=== PATIENT | female | born 1985 | race American Indian/Alaskan Native ===

== ENCOUNTER 2017-05-15 06:45 | Emergency (ER) | payer MEDICAID ==
--- NOTE | 2017-05-15 08:14 | Emergency Department Report ---
ED Female HPI - General Chief complaint: Urogenital-Female Stated complaint: PELVIS PAIN Time Seen by Provider: 05/15/17 08:12 Source: patient Mode of arrival: Ambulatory Limitations: No Limitations - History of Present Illness Complaint: vaginal bleeding -: Gradual Severity: mild Quality: cramping Consistency: intermittent Improves with: none Are you Now?: No Last Menstrual Period: 05/05/17 EDC: 02/09/18 Associated Symptoms: vaginal bleeding. denies: vaginal discharge, abdominal pain, nausea/vomiting, fever/chills, headaches, loss of appetite, dysuria, hematuria, rash, seizure, shortness of breath, syncope, weakness - Related Data Sexually active: Yes Previous Rx's Medication Instructions Recorded Last Taken Type metroNIDAZOLE [Flagyl] 500 mg PO Q12HR #14 tab 05/15/17 Unknown Rx Allergies Allergy/AdvReac Type Severity Reaction Status Date / Time No Known Allergies Allergy Unverified 05/15/17 07:45 ED Review of Systems ROS: Stated complaint: PELVIS PAIN Other details as noted in HPI Comment: Unobtainable due to pts medical conditions Constitutional: no symptoms reported, see HPI. denies: chills, fever Eyes: as per HPI. denies: eye pain ENT: as per HPI. denies: ear pain, throat pain Respiratory: no symptoms reported, see HPI. denies: cough, orthopnea Cardiovascular: as per HPI. denies: chest pain, palpitations, dyspnea on exertion, orthopnea Endocrine: no symptoms reported, see HPI. denies: excessive sweating, flushing , intolerance to cold, intolerance to heat Gastrointestinal: as per HPI. denies: abdominal pain, nausea, vomiting, diarrhea, constipation, hematemesis, melena, hematochezia Genitourinary: as per HPI, abnormal menses. denies: urgency, dysuria, frequency , hematuria, discharge, dyspareunia Musculoskeletal: as per HPI. denies: back pain Skin: as per HPI. denies: rash, lesions Neurological: as per HPI. denies: headache, weakness Psychiatric: as per HPI. denies: anxiety, depression Hematological/Lymphatic: as per HPI. denies: easy bleeding ED Past Medical Hx - Past Medical History Previous Medical History?: No Additional medical history: pid 2 m ago at [facility] [place] - Surgical History Past Surgical History?: Yes Additional Surgical History: tubaligation, Right ovarian cyst removal - Social History Smoking Status: Current Some Day Smoker Substance Use Type: Alcohol, Marijuana - Medications Home Medications: Home Medications Medication Instructions Recorded Confirmed Last Taken Type metroNIDAZOLE [Flagyl] 500 mg PO Q12HR #14 tab 05/15/17 Unknown Rx ED Physical Exam - General Limitations: No Limitations General appearance: alert - Head Head exam: Present: atraumatic - Eye Eye exam: Present: PERRL - ENT ENT exam: Present: mucous membranes moist - Neck Neck exam: Present: normal inspection - Respiratory Respiratory exam: Present: normal lung sounds bilaterally - Cardiovascular Cardiovascular Exam: Present: regular rate - GI/Abdominal GI/Abdominal exam: Present: soft, normal bowel sounds. Absent: distended, tenderness, guarding, rebound, rigid, diminished bowel sounds, hyperactive bowel sounds, hypoactive bowel sounds, organomegaly, mass, bruit, pulsatile mass , hernia - Rectal Rectal exam: Present: deferred - External exam: Present: normal external exam Speculum exam: Present: normal speculum exam, vaginal bleeding. Absent: erythema, vaginal discharge, cervical discharge, foreign body, tissue, laceration Bi-manual exam: Present: normal bi-manual exam. Absent: cervical motion tendernes, adnexal tenderness, adnexal mass, uterine enlargement, uterine tenderness - Extremities Exam Extremities exam: Present: normal inspection, full ROM, normal capillary refill. Absent: tenderness - Back Exam Back exam: Present: normal inspection, full ROM. Absent: tenderness, CVA tenderness (R), CVA tenderness (L) - Neurological Exam Neurological exam: Present: alert, oriented X3, CN II-XII intact, normal gait, reflexes normal - Psychiatric Psychiatric exam: Present: normal affect, normal mood ED Course Vital Signs 05/15/17 07:41 Temperature 98.6 F Pulse Rate 66 Respiratory 16 Rate Blood Pressure 116/84 O2 Sat by Pulse 96 Oximetry - Reevaluation(s) Reevaluation #1: 05/15/17 10:15 to er w menses 10 d concern for uti w recent pid sex w 1 man; no s/s did not see ob p pid pelvic w blood at cervix fishy odor no lesions discussed need for ob for pap and us to eval for fibroid vss. no orthostasis taking po ambulating wo diff dc home w dc poc vs on dc 120/80, 80 ED Medical Decision Making - Medical Decision Making see note Critical care attestation.: If time is entered above; I have spent that time in minutes in the direct care of this critically ill patient, excluding procedure time. ED Disposition Clinical Impression: Dysmenorrhea, Bacterial vaginosis Disposition: TO HOME OR SELFCARE Is pt being admited?: No Does the pt Need Aspirin: No Condition: Stable Instructions: Bacterial Vaginosis (ED), Dysmenorrhea (ED) Additional Instructions: rest fluids safe sex see enrobing machine corder for pap as we discussed let them know of trip to [facility] [place] and now here Prescriptions: metroNIDAZOLE [Flagyl] 500 mg PO Q12HR #14 tab Referrals: EBONY GONZALEZ MD [Primary Care Provider] - 3-5 Days AMIRAH DELUNA MD [Staff Physician] - 3-5 Days ROGERIO FAN MD [Referring] - 3-5 Days PREM LOCKETT MD [Referring] - 3-5 Days Forms: STI Treatment and Prevention Time of Disposition: 10:13
[2017-05-15 09:28] LABS: Bilirubin,Urine NEG (Negative); Blood,Urine NEG (Negative); Ketones,Urine NEG (Negative); Leukocyte Esterase,Urine NEG (Negative); Mucus,Urine FEW /HPF; Nitrite,Urine NEG (Negative); Protein,Urine <15 mg/dL mg/dL (Negative); RBC,Urine < 1.0 /HPF (0.0-6.0); WBC,Urine < 1.0 /HPF (0.0-6.0)
[2017-05-15 10:27] VITALS: BP 118/76
== END 2017-05-15 10:27 | disposition home or self-care (01) ==
LOC: ED 06:45
DX: N94.6 Dysmenorrhea, unspecified (principal); N76.0 Acute vaginitis; F17.210 Nicotine dependence, cigarettes, uncomplicated; F12.10 Cannabis abuse, uncomplicated
CPT/HCPCS: 81001; 81025; 87210; 87591; 99284

== ENCOUNTER 2018-01-09 19:49 | Emergency (ER) | payer MEDICAID ==
[2018-01-09 22:07] LABS: Basophils # (Auto) 0.1 K/mm3 (0.0-0.1); Basophils % (Auto) 0.6 % (0.0-1.8); Eosinophils # (Auto) 0.2 K/mm3 (0.0-0.4); Eosinophils % (Auto) 1.8 % (0.0-4.3); Hemoglobin 12.9 gm/dl (10.1-14.3); Lymphocytes % (Auto) 22.5 % (13.4-35.0); Mean Corpuscular HGB Conc 32 % (30-34); Mean Corpuscular Hemoglobin 28 pg (28-32); Mean Corpuscular Volume 88 fl (79-97); Monocytes # (Auto) 0.6 K/mm3 (0.0-0.8); Monocytes % (Auto) 6.6 % (0.0-7.3); Platelet Count 372 K/mm3 (140-440); Red Blood Count 4.53 M/mm3 (3.65-5.03); Red Cell Distribution Width 15.6 % (13.2-15.2)
[2018-01-09 22:19] LABS: Alanine Aminotransferase 13 units/L (7-56); Albumin 4.1 g/dL (3.9-5); BUN/Creatinine Ratio 6; Blood Urea Nitrogen 5 mg/dL (7-17); Calcium 8.9 mg/dL (8.4-10.2); Hemolysis Index 20; Lipase 49 units/L (13-60)
[2018-01-10 01:54] LABS: Bacteria,Urine 2+ /HPF (Negative); Bilirubin,Urine NEG (Negative); Blood,Urine NEG (Negative); Color,Urine Yellow (Yellow); Hyaline Casts,Urine 1 /LPF; Mucus,Urine FEW /HPF; Protein,Urine <15 mg/dL mg/dL (Negative); Urobilinogen,Urine < 2.0 mg/dL (<2.0)
--- NOTE | 2018-01-10 04:30 | Emergency Department Report ---
HPI - General Chief Complaint: Abdominal Pain Time Seen by Provider: 01/10/18 03:49 - HPI HPI: Room 6 The patient is a 32-year-old female presenting with a chief complaint pelvic pain. The patient states since last night she's had a constant suprapubic abdominal pain that is dull and sharp in nature. The patient states the pain is constant and associated with nausea but no vomiting. Patient denies fever, dysuria, vaginal discharge or hematuria. The patient states her last cycle occurred 12/29/2017 was within normal limits. The patient gives her pain a score of 8/10 Location: Suprapubic abdomen Duration: [See above] Quality: [See above] Severity:8/10 Modifying factors: [see above] Context: [see above] Mode of transportation: The patient drove herself to the emergency department and she is the only one able to drive ED Past Medical Hx - Past Medical History Previous Medical History?: Yes Additional medical history: pid 2 m ago at [facility] [place] - Surgical History Additional Surgical History: tubaligation, Right ovarian cyst removal - Family History Family history: no significant - Social History Smoking Status: Never Smoker Substance Use Type: None (denies illicit drug use), Alcohol (occasional) - Medications Home Medications: Home Medications Medication Instructions Recorded Confirmed Last Taken Type metroNIDAZOLE [Flagyl] 500 mg PO Q12HR #14 tab 05/15/17 Unknown Rx HYDROcodone/APAP 5-325 [[place] 1 - 2 each PO Q6HR PRN #10 tablet 01/10/18 Unknown Rx 5/325] Ibuprofen [Motrin 800 MG tab] 800 mg PO Q8HR PRN #20 tablet 01/10/18 Unknown Rx Levofloxacin [Levaquin TAB] 500 mg PO QDAY #7 tablet 01/10/18 Unknown Rx metroNIDAZOLE [Flagyl] 500 mg PO Q12HR #14 tab 01/10/18 Unknown Rx ED Review of Systems ROS: Stated complaint: ABDOMINAL PAIN Other details as noted in HPI Constitutional: denies: fever Eyes: denies: eye pain ENT: denies: throat pain Cardiovascular: denies: chest pain Gastrointestinal: abdominal pain, nausea. denies: vomiting Genitourinary: denies: dysuria, hematuria, discharge, abnormal menses Musculoskeletal: denies: back pain Neurological: denies: headache Physical Exam - Physical Exam Vital Signs: Vital Signs 01/09/18 21:41 Temperature 98.7 F Pulse Rate 76 Respiratory 14 Rate Blood Pressure 138/89 O2 Sat by Pulse 100 Oximetry Physical Exam: GENERAL: The patient is well-developed well-nourished female lying on stretcher not appearing to be in acute distress. [] HEENT: Normocephalic. Atraumatic. Extraocular motions are intact. Patient has moist mucous membranes. NECK: Supple. Trachea midline CHEST/LUNGS: Clear to auscultation. There is no respiratory distress noted. HEART/CARDIOVASCULAR: Regular. There is no tachycardia. There is no gallop rub or murmur. ABDOMEN: Abdomen is soft, with moderate discomfort to palpation in the suprapubic region. There is no rebound or guarding. There is no tenderness to palpation in the right lower quadrant. Patient has normal bowel sounds. There is no abdominal distention. SKIN: There is no rash. There is no edema. There is no diaphoresis. NEURO: The patient is awake, alert, and oriented. The patient is cooperative. The patient has normal speech MUSCULOSKELETAL: There is no evidence of acute injury. PELVIC: Copious white vaginal discharge ED Course Vital Signs 01/09/18 21:41 Temperature 98.7 F Pulse Rate 76 Respiratory 14 Rate Blood Pressure 138/89 O2 Sat by Pulse 100 Oximetry ED Medical Decision Making - Lab Data Result diagrams: 01/09/18 21:55 01/09/18 21:55 Laboratory Tests 01/09/18 01/09/18 01/09/18 00:00 21:55 21:55 WBC 8.8 RBC 4.53 Hgb 12.9 Hct 40.0 MCV 88 MCH 28 MCHC 32 RDW 15.6 H Plt Count 372 Lymph % (Auto) 22.5 [place] % (Auto) 6.6 Eos % (Auto) 1.8 Baso % (Auto) 0.6 Lymph # 2.0 [place] # 0.6 Eos # 0.2 Baso # 0.1 Seg Neutrophils % 68.5 Seg Neutrophils # 6.1 Sodium 137 Potassium 3.8 Chloride 98.5 Carbon Dioxide 27 Anion Gap 15 BUN 5 L Creatinine 0.8 Estimated GFR > 60 BUN/Creatinine Ratio 6 Glucose 110 H Calcium 8.9 Total Bilirubin 0.40 AST 16 ALT 13 Alkaline Phosphatase 73 Total Protein 7.5 Albumin 4.1 Albumin/Globulin Ratio 1.2 Lipase 49 HCG, Qual Urine Color Yellow Urine Turbidity Hazy Urine pH 6.0 Ur Specific [place] 1.015 Urine Protein <15 mg/dl Urine Glucose (UA) Neg Urine Ketones Neg Urine Blood Neg Urine Nitrite Neg Urine Bilirubin Neg Urine Urobilinogen < 2.0 Ur Leukocyte Esterase Mod Urine WBC (Auto) 29.0 H Urine RBC (Auto) 10.0 U Epithel Cells (Auto) 40.0 H Urine Bacteria (Auto) 2+ Hyaline Casts 1 Urine Mucus Few 01/09/18 21:55 WBC RBC Hgb Hct MCV MCH MCHC RDW Plt Count Lymph % (Auto) [place] % (Auto) Eos % (Auto) Baso % (Auto) Lymph # [place] # Eos # Baso # Seg Neutrophils % Seg Neutrophils # Sodium Potassium Chloride Carbon Dioxide Anion Gap BUN Creatinine Estimated GFR BUN/Creatinine Ratio Glucose Calcium Total Bilirubin AST ALT Alkaline Phosphatase Total Protein Albumin Albumin/Globulin Ratio Lipase HCG, Qual Negative Urine Color Urine Turbidity Urine pH Ur Specific [place] Urine Protein Urine Glucose (UA) Urine Ketones Urine Blood Urine Nitrite Urine Bilirubin Urine Urobilinogen Ur Leukocyte Esterase Urine WBC (Auto) Urine RBC (Auto) U Epithel Cells (Auto) Urine Bacteria (Auto) Hyaline Casts Urine Mucus Wet prep-greater than 20% clue cells, no yeast, no Trichomonas - Differential Diagnosis cystitis, bacterial vaginosis, vaginitis Critical care attestation.: If time is entered above; I have spent that time in minutes in the direct care of this critically ill patient, excluding procedure time. ED Disposition Clinical Impression: UTI (urinary tract infection), Acute abdominal pain, Bacterial vaginosis Disposition: TO HOME OR SELFCARE Is pt being admited?: No Does the pt Need Aspirin: No Condition: Stable Instructions: Abdominal Pain (ED), Bacterial Vaginosis (ED) Additional Instructions: Return to the emergency department immediately should you develop worsening symptoms, fever, inability to tolerate food or liquid or any other concerns. Prescriptions: HYDROcodone/APAP 5-325 [[place] 5/325] 1 - 2 each PO Q6HR PRN #10 tablet PRN Reason: Pain Ibuprofen [Motrin 800 MG tab] 800 mg PO Q8HR PRN #20 tablet PRN Reason: Pain Levofloxacin [Levaquin TAB] 500 mg PO QDAY #7 tablet metroNIDAZOLE [Flagyl] 500 mg PO Q12HR #14 tab Referrals: PRIMARY CARE, [Primary Care Provider] - 3-5 Days [facility] [Provider Group] - 3-5 Days Forms: STI Treatment and Prevention Time of Disposition: 05:20
[2018-01-10] MEDS ORDERED: ROCEPHIN IM ONE (05:14)
[2018-01-10] MEDS ORDERED: ZITHROMAX PO ONE (05:14)
[2018-01-10] MEDS ORDERED: XYLOCAINE 1% MPF 5 mL INFILTRATI ONE (05:14)
[2018-01-10 05:57] VITALS: BP 119/74
== END 2018-01-10 06:00 | disposition home or self-care (01) ==
LOC: ED 19:49
DX: N39.0 Urinary tract infection, site not specified (principal); N76.0 Acute vaginitis; B96.89 Other specified bacterial agents as the cause of diseases classified elsewhere; Z98.51 Tubal ligation status
CPT/HCPCS: 36415; 80053; 81001; 83690; 84703; 85025; 87210; 87591; 96372; 99284; J0696

== ENCOUNTER 2019-01-03 17:25 | Emergency (ER) | payer MEDICAID, OTHER ==
--- NOTE | 2019-01-03 18:02 | Emergency Department Report ---
Blank Doc - Documentation Documentation: 1 day history of mid abdominal pain associated with nausea. no constipaiton. no diarrhea. Has tubal ligation
[2019-01-03 18:51] LABS: Bilirubin,Urine NEG (Negative); Blood,Urine NEG (Negative); Color,Urine Yellow (Yellow); Mucus,Urine FEW /HPF; Protein,Urine <15 mg/dL mg/dL (Negative); Urobilinogen,Urine < 2.0 mg/dL (<2.0)
[2019-01-03 19:06] LABS: Hematocrit 39.5 % (30.3-42.9); Mean Corpuscular HGB Conc 33 % (30-34); Mean Corpuscular Volume 90 fl (79-97); Platelet Count 232 K/mm3 (140-440); Red Blood Count 4.38 M/mm3 (3.65-5.03); Red Cell Distribution Width 16.9 % (13.2-15.2)
[2019-01-03 19:07] LABS: Basophils % (Auto) 2.3 % (0.0-1.8); Eosinophils % (Auto) 1.1 % (0.0-4.3); Lymphocytes % (Auto) 18.2 % (13.4-35.0); Monocytes % (Auto) 6.6 % (0.0-7.3)
[2019-01-03 19:08] LABS: Alanine Aminotransferase 19 units/L (7-56); BUN/Creatinine Ratio 13; Basophils # (Auto) 0.1 K/mm3 (0.0-0.1); Blood Urea Nitrogen 9 mg/dL (7-17); Calcium 8.9 mg/dL (8.4-10.2); Eosinophils # (Auto) 0.1 K/mm3 (0.0-0.4); Hemolysis Index 4; Monocytes # (Auto) 0.4 K/mm3 (0.0-0.8)
[2019-01-03 19:11] LABS: HCG Qualitative,Urine Negative (Negative)
[2019-01-03] MEDS ORDERED: ZOFRAN IV ONE (19:20)
[2019-01-03] MEDS ORDERED: NACL 0.9% 1000 ML 1,000 ML IV ONE (19:20)
--- NOTE | 2019-01-03 19:59 | XRay Report ---
PROCEDURE: XR ABD SERIES W CXR 1V TECHNIQUE: AP chest with flat and upright abdomen HISTORY: n/v COMPARISONS: No priors FINDINGS: Cardiomediastinal silhouette within normal limits. No evidence of airspace consolidation or pleural effusions. The pulmonary vasculature is within normal limits. Nonspecific bowel gas pattern. No evidence of bowel obstruction or free intraperitoneal air. Mild focal dilatation of small bowel in the midabdomen which may represent focal ileus. IMPRESSION: Nonspecific bowel gas pattern with no evidence of bowel obstruction or free intraperitoneal air. Mild focal dilatation of small bowel in the midabdomen which may represent mild focal ileus.. This document is electronically signed by Mich Monterroso MD., January 03 2019 07:57:10 PM ET
--- NOTE | 2019-01-03 20:47 | Emergency Department Report ---
ED N/V/D HPI - General Chief complaint: Nausea/Vomiting/Diarrhea Stated complaint: STOMACH SICKNESS Time Seen by Provider: 01/03/19 17:58 Source: patient Mode of arrival: Ambulatory Limitations: No Limitations - History of Present Illness Initial comments: This is a 33-year-old female nontoxic, well nourished in appearance, no acute signs of distress presents to the ED with c/o of nausea and vomiting and abdominal 1 day. Patient describes vomiting as food content and yellow gastric acid. Patient describes abdominal pain as cramping and aching with level of 3/10 in the upper abdominal area. Patient denies chest pain, short of breath, fever, chills, headache, stiff neck, numbness or tingling. Patient denies any diarrhea or constipation. Patient denies any recent travels. Patient stated allergies to PCN. Patient stated PMH includes arthritis and hypertension. MD complaint: nausea, vomiting, abdominal pain -: days(s) (1) Description of Vomiting: food contents Associated Abdominal Pain: Yes Location: LUQ, RUQ Radiation: none Severity: mild Pain Scale: 3 Quality: cramping, aching Consistency: constant Improves with: none Worsens with: none Associated Symptoms: nausea/vomiting. denies: myalgias, chest pain, cough, diaphoresis, fever/chills, headaches, loss of appetite, malaise, rash, dysuria, shortness of breath, syncope, weakness - Related Data Previous Rx's Medication Instructions Recorded Last Taken Type metroNIDAZOLE [Flagyl] 500 mg PO Q12HR #14 tab 05/15/17 Unknown Rx HYDROcodone/APAP 5-325 [[place] 1 - 2 each PO Q6HR PRN #10 tablet 01/10/18 Unknown Rx 5/325] Ibuprofen [Motrin 800 MG tab] 800 mg PO Q8HR PRN #20 tablet 01/10/18 Unknown Rx levoFLOXacin [Levaquin TAB] 500 mg PO QDAY #7 tablet 01/10/18 Unknown Rx metroNIDAZOLE [Flagyl] 500 mg PO Q12HR #14 tab 01/10/18 Unknown Rx Acetaminophen/Codeine [Tylenol 1 tab PO Q6H PRN #12 tab 01/03/19 Unknown Rx /Codeine # 3 tab] Ondansetron [Zofran Odt] 4 mg PO Q8HR PRN #20 tab.rapdis 01/03/19 Unknown Rx Allergies Allergy/AdvReac Type Severity Reaction Status Date / Time No Known Allergies Allergy Verified 01/03/19 17:27 ED Review of Systems ROS: Stated complaint: STOMACH SICKNESS Other details as noted in HPI Constitutional: denies: chills, fever Eyes: denies: eye pain, eye discharge, vision change ENT: denies: ear pain, throat pain Respiratory: denies: cough, shortness of breath, wheezing Cardiovascular: denies: chest pain, palpitations Endocrine: no symptoms reported Gastrointestinal: abdominal pain, nausea, vomiting. denies: diarrhea, constipation Genitourinary: denies: urgency, dysuria, discharge Musculoskeletal: denies: back pain, joint swelling, arthralgia Skin: denies: rash, lesions Neurological: denies: headache, weakness, paresthesias Psychiatric: denies: anxiety, depression Hematological/Lymphatic: denies: easy bleeding, easy bruising ED Past Medical Hx - Past Medical History Previous Medical History?: No Additional medical history: pid 2 m ago at [facility] [place] - Surgical History Additional Surgical History: tubaligation, Right ovarian cyst removal - Social History Smoking Status: Never Smoker Substance Use Type: None - Medications Home Medications: Home Medications Medication Instructions Recorded Confirmed Last Taken Type metroNIDAZOLE [Flagyl] 500 mg PO Q12HR #14 tab 05/15/17 Unknown Rx HYDROcodone/APAP 5-325 [[place] 1 - 2 each PO Q6HR PRN #10 tablet 01/10/18 Unknown Rx 5/325] Ibuprofen [Motrin 800 MG tab] 800 mg PO Q8HR PRN #20 tablet 01/10/18 Unknown Rx levoFLOXacin [Levaquin TAB] 500 mg PO QDAY #7 tablet 01/10/18 Unknown Rx metroNIDAZOLE [Flagyl] 500 mg PO Q12HR #14 tab 01/10/18 Unknown Rx Acetaminophen/Codeine [Tylenol 1 tab PO Q6H PRN #12 tab 01/03/19 Unknown Rx /Codeine # 3 tab] Ondansetron [Zofran Odt] 4 mg PO Q8HR PRN #20 tab.rapdis 01/03/19 Unknown Rx ED Physical Exam - General Limitations: No Limitations General appearance: alert, in no apparent distress - Head Head exam: Present: atraumatic, normocephalic - Eye Eye exam: Present: normal appearance - ENT ENT exam: Present: mucous membranes moist - Neck Neck exam: Present: normal inspection, full ROM. Absent: tenderness, meningismus, lymphadenopathy - Respiratory Respiratory exam: Present: normal lung sounds bilaterally. Absent: respiratory distress, wheezes, rales, rhonchi, stridor, chest wall tenderness, accessory muscle use, decreased breath sounds, prolonged expiratory - Cardiovascular Cardiovascular Exam: Present: regular rate, normal rhythm, normal heart sounds. Absent: bradycardia, tachycardia, irregular rhythm, systolic murmur, diastolic murmur, rubs, gallop - GI/Abdominal GI/Abdominal exam: Present: soft, normal bowel sounds. Absent: distended, tenderness, guarding, rebound, rigid, diminished bowel sounds - Extremities Exam Extremities exam: Present: normal inspection, full ROM, normal capillary refill - Back Exam Back exam: Present: normal inspection, full ROM. Absent: tenderness, CVA tenderness (R), CVA tenderness (L), muscle spasm, paraspinal tenderness, vertebral tenderness, rash noted - Neurological Exam Neurological exam: Present: alert, oriented X3, normal gait - Psychiatric Psychiatric exam: Present: normal affect, normal mood - Skin Skin exam: Present: warm, dry, intact, normal color. Absent: rash ED Course Vital Signs 01/03/19 01/03/19 01/03/19 17:30 19:40 23:33 Temperature 98.5 F Pulse Rate 72 86 Respiratory 16 16 16 Rate Blood Pressure 127/77 Blood Pressure 109/69 [Left] O2 Sat by Pulse 100 99 Oximetry - Reevaluation(s) Reevaluation #1: 01/03/19 20:43 Patient is speaking in full sentences with no signs of distress noted. ED Medical Decision Making - Lab Data Result diagrams: 01/03/19 18:29 01/03/19 18:29 - Medical Decision Making This is a 33-year-old female that presents with abdominal pain with n/v. Patient is stable and was examined by me. There is no abdominal tenderness. Negative signs of symptoms of appendicitis. Labs obtained. UA obtained. Xray abdominal obntained which showed possible ileus. CT of abdomen with IV and PO contrast obtained and dictated by the radiologist. Patient is notified of the report with no questions noted by the patient. Vital signs are stable prior to discharge. Patient received medical treatment in the ED which patient stated symptoms has resolved and subsided. Was instructed note to operate any machinery due to possible drowsiness and stated someone will drive the patient home. A by mouth challenge has been obtained and patient tolerated well with no nausea vomiting. Patient was notified of strict precautions of appendicitis symptoms and to return to the ED if symptoms occurs as soon as possible. Patient was also instructed to Follow-up with a primary care doctor in 3-5 days or if symptoms worsen and continue return to emergency room as soon as possible. At time of discharge, the patient does not seem toxic or ill in appearance. No acute signs of distress noted. Patient agrees to discharge treatment plan of care. No further questions noted by the patient. Critical care attestation.: If time is entered above; I have spent that time in minutes in the direct care of this critically ill patient, excluding procedure time. ED Disposition Clinical Impression: Nausea & vomiting Qualifiers: Vomiting type: unspecified Vomiting Intractability: non-intractable Qualified Code(s): R11.2 - Nausea with vomiting, unspecified Abdominal pain Qualifiers: Abdominal location: upper abdomen, unspecified Qualified Code(s): R10.10 - Upper abdominal pain, unspecified Disposition: DC-01 TO HOME OR SELFCARE Is pt being admited?: No Does the pt Need Aspirin: No Condition: Stable Instructions: Acute Nausea and Vomiting (ED) Additional Instructions: Follow-up with a primary care doctor in 3-5 days or if symptoms worsen and continue return to emergency room as soon as possible. Prescriptions: Acetaminophen/Codeine [Tylenol /Codeine # 3 tab] 1 tab PO Q6H PRN #12 tab PRN Reason: Pain , Severe (7-10) Ondansetron [Zofran Odt] 4 mg PO Q8HR PRN #20 tab.rapdis PRN Reason: Nausea Referrals: JAMEL NATH MD [Staff Physician] - 3-5 Days PRIMARY CARE, [Referring] - 3-5 Days CAMILLE DOWNS MD [Staff Physician] - 3-5 Days [place] [Outside] - 3-5 Days [facility] [Outside] - 3-5 Days Forms: Work/School Release Form(ED)
[2019-01-03] MEDS ORDERED: MORPHINE IV ONE (21:10)
[2019-01-03] MEDS ORDERED: DILAUDID IV ONE (21:50)
[2019-01-03] MEDS ORDERED: DILAUDID ONE (21:53)
--- NOTE | 2019-01-03 23:06 | Cat Scan Report ---
PROCEDURE: CT ABDOMEN PELVIS W CON TECHNIQUE: Computerized axial tomography of the abdomen and pelvis was performed after the IV inject ion of iodinated nonionic contrast. CT DOSE LENGTH PRODUCT: 1599.6 mGycm HISTORY: abd pain COMPARISONS: None . FINDINGS: Liver, spleen, pancreas and adrenal glands are within normal limits. Bilateral kidneys demonstrate un iform enhancement without hydronephrosis. Urinary bladder is partially filled. Aorta is of normal jonel iber. Minimal degree free fluid is noted in the pelvic cavity which is within physiologic limits. The re is no free air. A 2.5 cm cystic lesion is noted in the left adnexal region. Gallbladder is unremar kable. Small bowel loops are within normal limits. Appendix is partially visualized and appears nahomi l. Vertebral height is normal. IMPRESSION: A cystic lesion in the left adnexal region most likely represents a dominant follicle versus left cys t. Otherwise unremarkable study. This document is electronically signed by Jose Antonio Gurrola MD., January 03 2019 11:04:18 PM ET
[2019-01-03 23:33] VITALS: BP 109/69
== END 2019-01-03 23:33 | disposition home or self-care (01) ==
LOC: ED 17:25
DX: R10.10 Upper abdominal pain, unspecified (principal); R11.2 Nausea with vomiting, unspecified; Z98.51 Tubal ligation status; Z79.899 Other long term (current) drug therapy
CPT/HCPCS: 36415; 74022; 74177; 80053; 81001; 81025; 83690; 85025; 96361; 96374; 96375; 99284; J1170; J2270; J2405; J7030; Q9967

== ENCOUNTER 2019-08-13 17:32 | Emergency (ER) | payer SELFPAY | END 2019-08-13 18:47 | disposition left against medical advice (07) | LOC: ED 17:32 | DX: R10.10 Upper abdominal pain, unspecified (principal); Z53.21 Procedure and treatment not carried out due to patient leaving prior to being seen by health care provider ==

== ENCOUNTER 2019-08-16 16:16 | Emergency (ER) | payer OTHER ==
[2019-08-16 16:32] VITALS: BP 129/72
--- NOTE | 2019-08-16 16:36 | Emergency Department Report ---
Blank Doc - Documentation Documentation: 33-year-old female that presents with dyrusia and urinary frequency. Also sta ct has a rash to bilateral hands. This initial assessment/diagnostic orders/clinical plan/treatment(s) is/are subject to change based on patient's health status, clinical progression and re-assessment by fellow clinical providers in the ED. Further treatment and workup at subsequent clinical providers discretion. Patient/guardians urged not to elope from the ED as their condition may be serious if not clinically assessed and managed. Initial orders include: 1- Patient sent to [facility] for further evaluation and treatment 2- UA
[2019-08-16 18:08] LABS: HCG Qualitative,Urine Negative (Negative)
[2019-08-16 18:14] LABS: Bilirubin,Urine NEG (Negative); Blood,Urine NEG (Negative); Color,Urine Yellow (Yellow); Mucus,Urine FEW /HPF; Protein,Urine <15 mg/dL mg/dL (Negative); Urobilinogen,Urine < 2.0 mg/dL (<2.0)
--- NOTE | 2019-08-16 20:10 | Emergency Department Report ---
ED Female HPI - General Chief complaint: Urogenital-Female Stated complaint: FREQUENT URINATION/UTI Time Seen by Provider: 08/16/19 16:35 Source: patient Mode of arrival: Ambulatory Limitations: No Limitations - History of Present Illness Initial comments: Patient is a 33-year-old female presents emergency room with complaints of suprapubic cramping that began a month ago. She has associated urinary frequency. She denies any dysuria, fever, nausea, vomiting. She does not report any vaginal discharge or irritation. She denies any past medical history or allergies medications. Patient states that she is also had small bumps on her hands and to her shoulders and she states that she usually notices it when she is at work. She denies any past medical history or allergies medications. She denies anyone else with a rash. She states that her last menstrual cycle was the beginning of July. She states that she has an appointment with her primary care physician on September 10. - Related Data Previous Rx's Medication Instructions Recorded Last Taken Type metroNIDAZOLE [Flagyl] 500 mg PO Q12HR #14 tab 05/15/17 Unknown Rx HYDROcodone/APAP 5-325 [[place] 1 - 2 each PO Q6HR PRN #10 tablet 01/10/18 Unknown Rx 5/325] Ibuprofen [Motrin 800 MG tab] 800 mg PO Q8HR PRN #20 tablet 01/10/18 Unknown Rx levoFLOXacin [Levaquin TAB] 500 mg PO QDAY #7 tablet 01/10/18 Unknown Rx metroNIDAZOLE [Flagyl] 500 mg PO Q12HR #14 tab 01/10/18 Unknown Rx Acetaminophen/Codeine [Tylenol 1 tab PO Q6H PRN #12 tab 01/03/19 Unknown Rx /Codeine # 3 tab] Ondansetron [Zofran Odt] 4 mg PO Q8HR PRN #20 tab.rapdis 01/03/19 Unknown Rx Fluconazole [Diflucan TAB] 150 mg PO ONCE #1 tablet 08/16/19 Unknown Rx cephALEXin [Keflex] 500 mg PO BID 7 Days #14 cap 08/16/19 Unknown Rx Allergies Allergy/AdvReac Type Severity Reaction Status Date / Time No Known Allergies Allergy Verified 08/13/19 17:34 ED Review of Systems ROS: Stated complaint: FREQUENT URINATION/UTI Other details as noted in HPI Comment: All other systems reviewed and negative ED Past Medical Hx - Past Medical History Additional medical history[place] 2 [place] [facility] [place] History Additional Surgical History: tuba ligation, Right ovarian cyst removal - Social History Smoking Status: Never Smoker Substance Use Type: Alcohol - Medications Home Medications: Home Medications Medication Instructions Recorded Confirmed Last Taken Type metroNIDAZOLE [Flagyl] 500 mg PO Q12HR #14 tab 05/15/17 Unknown Rx HYDROcodone/APAP 5-325 [[place] 1 - 2 each PO Q6HR PRN #10 tablet 01/10/18 Unknown Rx 5/325] Ibuprofen [Motrin 800 MG tab] 800 mg PO Q8HR PRN #20 tablet 01/10/18 Unknown Rx levoFLOXacin [Levaquin TAB] 500 mg PO QDAY #7 tablet 01/10/18 Unknown Rx metroNIDAZOLE [Flagyl] 500 mg PO Q12HR #14 tab 01/10/18 Unknown Rx Acetaminophen/Codeine [Tylenol 1 tab PO Q6H PRN #12 tab 01/03/19 Unknown Rx /Codeine # 3 tab] Ondansetron [Zofran Odt] 4 mg PO Q8HR PRN #20 tab.rapdis 01/03/19 Unknown Rx Fluconazole [Diflucan TAB] 150 mg PO ONCE #1 tablet 08/16/19 Unknown Rx cephALEXin [Keflex] 500 mg PO BID 7 Days #14 cap 08/16/19 Unknown Rx ED Physical Exam - General Limitations: No Limitations General appearance: alert, in no apparent distress - Head Head exam: Present: atraumatic, normocephalic - Eye Eye exam: Present: normal appearance - ENT ENT exam: Present: mucous membranes moist - Respiratory Respiratory exam: Present: normal lung sounds bilaterally. Absent: respiratory distress, wheezes, rales, rhonchi, stridor, chest wall tenderness, accessory muscle use, decreased breath sounds, prolonged expiratory - Cardiovascular Cardiovascular Exam: Present: regular rate, normal rhythm, normal heart sounds. Absent: systolic murmur, diastolic murmur, rubs, gallop - GI/Abdominal GI/Abdominal exam: Present: soft, normal bowel sounds. Absent: distended, tenderness, guarding, rebound, rigid - Back Exam Back exam: Absent: CVA tenderness (R), CVA tenderness (L) - Neurological Exam Neurological exam: Present: alert, oriented X3 - Psychiatric Psychiatric exam: Present: normal affect, normal mood - Skin Skin exam: Present: warm, dry, other (very tiny pink colored papule only a couple on the bilateral hands, nothing present on the shoulders, no excoriations, not present in the webs of the fingers, no sloughing of the skin, no necrosis, no blistering) ED Course Vital Signs 08/16/19 16:30 Temperature 98.1 F Pulse Rate 92 H Respiratory 16 Rate Blood Pressure 129/72 O2 Sat by Pulse 100 Oximetry ED Medical Decision Making - Lab Data Lab Results 08/16/19 Range/Units 17:30 Urine Color Yellow (Yellow) Urine Turbidity Slightly-cloudy (Clear) Urine pH 7.0 (5.0-7.0) Ur Specific [place] 1.020 (1.003-1.030) Urine Protein <15 mg/dl (Negative) mg/dL Urine Glucose (UA) Neg (Negative) mg/dL Urine Ketones Neg (Negative) mg/dL Urine Blood Neg (Negative) Urine Nitrite Neg (Negative) Ur Reducing Substances Not Reportable Urine Bilirubin Neg (Negative) Urine Ictotest Not Reportable Urine Urobilinogen < 2.0 (<2.0) mg/dL Ur Leukocyte Esterase Mod (Negative) Urine WBC (Auto) 14.0 H (0.0-6.0) /HPF Urine RBC (Auto) 8.0 (0.0-6.0) /HPF U Epithel Cells (Auto) 11.0 (0-13.0) /HPF Urine Mucus Few /HPF Urine HCG, Qual Negative (Negative) - Medical Decision Making Patient is a 33-year-old female presents emergency room with complaints of suprapubic cramping that began a month ago. She has associated urinary frequency. She denies any dysuria, fever, nausea, vomiting. She does not report any vaginal discharge or irritation. She denies any past medical history or allergies medications. Patient states that she is also had small bumps on her hands and to her shoulders and she states that she usually notices it when she is at work. She denies any past medical history or allergies medications. She denies anyone else with a rash. She states that her last menstrual cycle was the beginning of July. She states that she has an appointment with her primary care physician on September 10. vitals are normal. on exam: No abdominal tenderness to palpation, no CVA tenderness, very tiny pink colored papule only a couple on the bilateral hands, nothing present on the shoulders, no excoriations, not present in the webs of the fingers, no sloughing of the skin, no necrosis, no blistering. Does not appear to look like bed bugs or scabies. could be related to a contact dermatitis, advised patient to use [id number] treatments and to see her primary care doctor for further evaluation and management. UA shows evidence of UTI. urine preg is negative. Patient given prescription for Keflex. Patient was concerned for a yeast infection given the antibiotics patient given prescription for fluconazole. advised pt to take medication as prescribed. Increase your water intake. May use a cortisone cream [id number] and Benadryl as needed for itching for your rash. Please follow-up with a primary care doctor in the next 2-3 days for reexamination. have your primary care doctor retest your urine after completion of antibiotics. Return to the emergency room for any new or worsening symptoms. - Differential Diagnosis contact derm, irritant derm, scabies, bed bugs, UTI, vaginitis Critical care attestation.: If time is entered above; I have spent that time in minutes in the direct care of this critically ill patient, excluding procedure time. ED Disposition Clinical Impression: Rash UTI (urinary tract infection) Qualifiers: Urinary tract infection type: acute cystitis Hematuria presence: without hematuria Qualified Code(s): N30.00 - Acute cystitis without hematuria Disposition: DC-01 TO HOME OR SELFCARE Is pt being admited?: No Does the pt Need Aspirin: No Condition: Stable Instructions: Urinary Tract Infection in Women (ED), Acute Rash (ED) Additional Instructions: Please take medication as prescribed. Increase your water intake. May use a cortisone cream [id number] and Benadryl as needed for itching for your rash. Please follow-up with a primary care doctor in the next 2-3 days for reexamination. have your primary care doctor retest your urine after completion of antibiotics. Return to the emergency room for any new or worsening symptoms. Prescriptions: Fluconazole [Diflucan TAB] 150 mg PO ONCE #1 tablet cephALEXin [Keflex] 500 mg PO BID 7 Days #14 cap Referrals: JAMEL NATH MD [Staff Physician] - 2-3 Days [facility] [Outside] - 2-3 Days [facility] [Outside] - 2-3 Days Time of Disposition: 20:10 Print Language: MALTESE
== END 2019-08-16 20:23 | disposition home or self-care (01) ==
LOC: ED 16:16
DX: N39.0 Urinary tract infection, site not specified (principal); R21 Rash and other nonspecific skin eruption; Z98.51 Tubal ligation status; Z79.899 Other long term (current) drug therapy
CPT/HCPCS: 81001; 81025; 87086

== ENCOUNTER 2019-09-30 11:00 | Emergency (ER) | payer OTHER ==
[2019-09-30 11:12] VITALS: BP 135/89
--- NOTE | 2019-09-30 11:47 | XRay Report ---
Left knee 3 views INDICATION: Left knee pain. IMPRESSION: Large left knee effusion. No fracture or subluxation appreciated. Signer Name: Rufino Moore MD Signed: 09/30/2019 11:43 AM Workstation Name: [id number]
--- NOTE | 2019-09-30 12:42 | Emergency Department Report ---
ED Lower Extremity HPI - General Chief Complaint: Extremity Injury, Lower Stated Complaint: LT KNEE PAIN W/SWELLING Time Seen by Provider: 09/30/19 12:32 Source: patient Mode of arrival: Ambulatory Limitations: No Limitations - History of Present Illness Initial Comments: Patient is 33 years old female with no significant past medical history. Patient presented to the ER complaining of left knee pain and swelling for approximately 1 week. Patient stated that symptoms started after she was jumping on a trampoline when twisted her left knee. Patient denied any other injuries. Patient denied any fever or chills. MD Complaint: knee injury -: week(s) Injury: Knee: Left Type of Injury: inversion Severity scale (0 -10): 4 Context: jumping Associated Symptoms: swelling, able to partially bear weight - Related Data Previous Rx's Medication Instructions Recorded Last Taken Type metroNIDAZOLE [Flagyl] 500 mg PO Q12HR #14 tab 05/15/17 Unknown Rx HYDROcodone/APAP 5-325 [[place] 1 - 2 each PO Q6HR PRN #10 tablet 01/10/18 Unknown Rx 5/325] Ibuprofen [Motrin 800 MG tab] 800 mg PO Q8HR PRN #20 tablet 01/10/18 Unknown Rx levoFLOXacin [Levaquin TAB] 500 mg PO QDAY #7 tablet 01/10/18 Unknown Rx metroNIDAZOLE [Flagyl] 500 mg PO Q12HR #14 tab 01/10/18 Unknown Rx Acetaminophen/Codeine [Tylenol 1 tab PO Q6H PRN #12 tab 01/03/19 Unknown Rx /Codeine # 3 tab] Ondansetron [Zofran Odt] 4 mg PO Q8HR PRN #20 tab.rapdis 01/03/19 Unknown Rx Fluconazole [Diflucan TAB] 150 mg PO ONCE #1 tablet 08/16/19 Unknown Rx cephALEXin [Keflex] 500 mg PO BID 7 Days #14 cap 08/16/19 Unknown Rx Allergies Allergy/AdvReac Type Severity Reaction Status Date / Time No Known Allergies Allergy Verified 08/13/19 17:34 ED Review of Systems ROS: Stated complaint: LT KNEE PAIN W/SWELLING Other details as noted in HPI Comment: All other systems reviewed and negative Constitutional: denies: chills, fever Respiratory: denies: cough, shortness of breath, SOB with exertion Cardiovascular: denies: chest pain Gastrointestinal: denies: abdominal pain Musculoskeletal: denies: back pain Neurological: denies: headache ED Past Medical Hx - Past Medical History Previous Medical History?: Yes Additional medical history: pid 2 m ago at [facility] [place] - Surgical History Past Surgical History?: Yes Additional Surgical History: tuba ligation, Right ovarian cyst removal - Social History Smoking Status: Current Some Day Smoker Substance Use Type: Alcohol - Medications Home Medications: Home Medications Medication Instructions Recorded Confirmed Last Taken Type metroNIDAZOLE [Flagyl] 500 mg PO Q12HR #14 tab 05/15/17 Unknown Rx HYDROcodone/APAP 5-325 [[place] 1 - 2 each PO Q6HR PRN #10 tablet 01/10/18 Unknown Rx 5/325] Ibuprofen [Motrin 800 MG tab] 800 mg PO Q8HR PRN #20 tablet 01/10/18 Unknown Rx levoFLOXacin [Levaquin TAB] 500 mg PO QDAY #7 tablet 01/10/18 Unknown Rx metroNIDAZOLE [Flagyl] 500 mg PO Q12HR #14 tab 01/10/18 Unknown Rx Acetaminophen/Codeine [Tylenol 1 tab PO Q6H PRN #12 tab 01/03/19 Unknown Rx /Codeine # 3 tab] Ondansetron [Zofran Odt] 4 mg PO Q8HR PRN #20 tab.rapdis 01/03/19 Unknown Rx Fluconazole [Diflucan TAB] 150 mg PO ONCE #1 tablet 08/16/19 Unknown Rx cephALEXin [Keflex] 500 mg PO BID 7 Days #14 cap 08/16/19 Unknown Rx ED Physical Exam - General Limitations: No Limitations General appearance: alert, in no apparent distress - Head Head exam: Present: atraumatic, normocephalic, normal inspection - Eye Eye exam: Present: normal appearance - ENT ENT exam: Present: normal exam, normal orophraynx, mucous membranes moist - Neck Neck exam: Present: normal inspection. Absent: tenderness, meningismus - Respiratory Respiratory exam: Present: normal lung sounds bilaterally - Cardiovascular Cardiovascular Exam: Present: regular rate, normal rhythm, normal heart sounds - GI/Abdominal GI/Abdominal exam: Present: soft, normal bowel sounds. Absent: distended, tenderness, guarding, rebound, rigid, organomegaly, mass, bruit, pulsatile mass, hernia - Extremities Exam Extremities exam: Present: normal inspection - Expanded Lower Extremity Exam Left Knee exam: Present: full ROM, tenderness, swelling. Absent: abrasion, laceration, ecchymosis, deformity, crepidus, dislocation, erythema ED Course Vital Signs 09/30/19 11:07 Temperature 99 F Pulse Rate 95 H Respiratory 18 Rate Blood Pressure 135/89 O2 Sat by Pulse 100 Oximetry - Orthopedic Splinting/Casting Injury #1 Side: left Upper Extremity Immobilizer: Gurwinder wrap ED Lower Extremity MDM - Radiology Data Radiology results: report reviewed - Medical Decision Making Patient is 33 years old female with no significant past medical history. Patient presented to the ER complaining of left knee pain and swelling for approximately 1 week. Patient stated that symptoms started after she was jumping on a trampoline when twisted her left knee. Patient denied any other injuries. Patient denied any fever or chills. Knee x-ray showed no fracture or dislocation however there is a large joint effusion. Patient given prescription for Naprosyn twice a day and advised to follow-up with her primary care physician for possible MRI if symptoms are not improved. Critical care attestation.: If time is entered above; I have spent that time in minutes in the direct care of this critically ill patient, excluding procedure time. ED Disposition Clinical Impression: Sprain of left knee Disposition: DC-01 TO HOME OR SELFCARE Is pt being admited?: No Condition: Stable Instructions: Knee Sprain (ED) Referrals: PRIMARY CAREMD [Referring] - 3-5 Days
== END 2019-09-30 12:57 | disposition home or self-care (01) ==
LOC: ED 11:00
DX: S83.8X2A Sprain of other specified parts of left knee, initial encounter (principal); F17.200 Nicotine dependence, unspecified, uncomplicated; Z98.51 Tubal ligation status; Z79.899 Other long term (current) drug therapy; X58.XXXA Exposure to other specified factors, initial encounter; Y93.89 Activity, other specified; Y92.89 Other specified places as the place of occurrence of the external cause; Y99.8 Other external cause status

== ENCOUNTER 2019-10-09 14:39 | Emergency (ER) | payer OTHER ==
--- NOTE | 2019-10-09 15:27 | Event Note ---
ED Screening Note Date of service: 10/09/19 Time: 15:23 ED Screening Note: 34 y o female presents with upper abd pain with nausea x yesterday pain constant denies v/d/ LMP: 09/30/2019 This initial assessment/diagnostic orders/clinical plan/treatment(s) is/are subject to change based on patients health status, clinical progression and re- assessment by fellow clinical providers in the ED. Further treatment and workup at subsequent clinical providers discretion. Patient/guardian urged not to elope from the ED as their condition may be serious if not clinically assessed and managed. Initial orders include: ua,upt cbc,bmp acc eval
[2019-10-09 16:04] LABS: Basophils % (Auto) 0.6 % (0.0-1.8); Eosinophils # (Auto) 0.2 K/mm3 (0.0-0.4); Eosinophils % (Auto) 2.7 % (0.0-4.3); Hematocrit 36.3 % (30.3-42.9); Lymphocytes # (Auto) 1.9 K/mm3 (1.2-5.4); Lymphocytes % (Auto) 28.6 % (13.4-35.0); Mean Corpuscular HGB Conc 33 % (30-34); Mean Corpuscular Volume 93 fl (79-97); Monocytes # (Auto) 0.7 K/mm3 (0.0-0.8); Monocytes % (Auto) 10.5 % (0.0-7.3); Platelet Count 407 K/mm3 (140-440); Red Blood Count 3.89 M/mm3 (3.65-5.03); Red Cell Distribution Width 14.3 % (13.2-15.2)
[2019-10-09 16:12] LABS: Alanine Aminotransferase 16 units/L (7-56); BUN/Creatinine Ratio 15; Blood Urea Nitrogen 9 mg/dL (7-17); Calcium 8.8 mg/dL (8.4-10.2); Hemolysis Index 1
[2019-10-09 16:23] LABS: Bilirubin,Urine NEG (Negative); Blood,Urine NEG (Negative); Color,Urine Yellow (Yellow); Mucus,Urine FEW /HPF; Protein,Urine <15 mg/dL mg/dL (Negative); Urobilinogen,Urine < 2.0 mg/dL (<2.0); WBC,Urine < 1.0 /HPF (0.0-6.0)
[2019-10-09] MEDS ORDERED: FAMOTIDINE 20 MG TAB PO ONE (18:41)
[2019-10-09] MEDS ORDERED: LIDOCAINE VISCOUS 2% 15 ML ORAL LIQD PO ONE (18:41)
[2019-10-09] MEDS ORDERED: ALUM-MAG HYDROXIDE-SIMETHICONE 200-200-20MG/5ML ORAL LIQD 30 ML PO ONE (18:41)
[2019-10-09] MEDS ORDERED: DICYCLOMINE 20 MG TAB PO ONE (18:42)
--- NOTE | 2019-10-09 19:40 | Emergency Department Report ---
ED Abdominal Pain HPI - General Chief Complaint: Abdominal Pain Stated Complaint: LEFT SIDE PAIN/ABD PAIN Source: patient Mode of arrival: Ambulatory Limitations: No Limitations - History of Present Illness Initial Comments: Patient is a A0 34-year-old -[place] female with no past medical history who presented to the ED with complaint of acute onset persistent inter mittent left upper quadrant pain that radiates to the epigastric area with intermittent nausea and vomiting for 24 hours after heavy alcohol consumption and eating highly spicy foods. Patient denies chest pain, shortness of breath, dizziness, vomiting, diarrhea, sore throat, change in vision, dysuria, urinary frequency and urgency, vaginal bleeding, vaginal discharge or cough, fever and chills. MD Complaint: abdominal pain (LUQ), other (nausea) -: Sudden, hour(s) (12) Location: LUQ, epigastric Radiation: LUQ, epigastric Migration to: no migration Severity: moderate Severity scale (0 -10): 6 Quality: aching, sharp, burning Consistency: constant Improves With: nothing Worsens With: eating Context: other (Heavy alcohol consumption and eating spicy food) Associated Symptoms: denies other symptoms, nausea, anorexia. denies: vomiting, diarrhea, fever, chills, constipation, dysuria, hematemesis, hematochezia, melena, syncope - Related Data LMP Date: 09/30/19 Previous Rx's Medication Instructions Recorded Last Taken Type metroNIDAZOLE [Flagyl] 500 mg PO Q12HR #14 tab 05/15/17 Unknown Rx HYDROcodone/APAP 5-325 [[place]amy 1 - 2 each PO Q6HR PRN #10 tablet 01/10/18 Unknown Rx 5/325] Ibuprofen [Motrin 800 MG tab] 800 mg PO Q8HR PRN #20 tablet 01/10/18 Unknown Rx levoFLOXacin [Levaquin TAB] 500 mg PO QDAY #7 tablet 01/10/18 Unknown Rx metroNIDAZOLE [Flagyl] 500 mg PO Q12HR #14 tab 01/10/18 Unknown Rx Acetaminophen/Codeine [Tylenol 1 tab PO Q6H PRN #12 tab 01/03/19 Unknown Rx /Codeine # 3 tab] Ondansetron [Zofran Odt] 4 mg PO Q8HR PRN #20 tab.rapdis 01/03/19 Unknown Rx Fluconazole [Diflucan TAB] 150 mg PO ONCE #1 tablet 08/16/19 Unknown Rx cephALEXin [Keflex] 500 mg PO BID 7 Days #14 cap 08/16/19 Unknown Rx Naproxen [Naprosyn] 500 mg PO BID #14 tablet 09/30/19 Unknown Rx Dicyclomine [Bentyl] 20 mg PO Q6H PRN #24 tablet 10/09/19 Unknown Rx Famotidine [Pepcid] 20 mg PO Q12H #60 tablet 10/09/19 Unknown Rx Ondansetron [Zofran Odt] 4 mg PO Q6HR PRN #18 tab.rapdis 10/09/19 Unknown Rx Allergies Allergy/AdvReac Type Severity Reaction Status Date / Time No Known Allergies Allergy Verified 08/13/19 17:34 ED Review of Systems ROS: Stated complaint: LEFT SIDE PAIN/ABD PAIN Other details as noted in HPI Constitutional: denies: chills, fever Eyes: denies: eye pain, eye discharge, vision change ENT: denies: ear pain, throat pain Respiratory: denies: cough, shortness of breath, wheezing Cardiovascular: denies: chest pain, palpitations Endocrine: no symptoms reported Gastrointestinal: abdominal pain, nausea. denies: diarrhea Genitourinary: denies: urgency, dysuria, discharge Musculoskeletal: denies: back pain, joint swelling, arthralgia Skin: denies: rash, lesions Neurological: denies: headache, weakness, paresthesias Psychiatric: denies: anxiety, depression Hematological/Lymphatic: denies: easy bleeding, easy bruising ED Past Medical Hx - Past Medical History Previous Medical History?: No Additional medical history: pid 2 m ago at [facility] [place] - Surgical History Additional Surgical History: tubal ligation, Right ovarian cyst removal - Social History Smoking Status: Current Some Day Smoker Substance Use Type: Alcohol - Medications Home Medications: Home Medications Medication Instructions Recorded Confirmed Last Taken Type metroNIDAZOLE [Flagyl] 500 mg PO Q12HR #14 tab 05/15/17 Unknown Rx HYDROcodone/APAP 5-325 [[place]amy 1 - 2 each PO Q6HR PRN #10 tablet 01/10/18 Unknown Rx 5/325] Ibuprofen [Motrin 800 MG tab] 800 mg PO Q8HR PRN #20 tablet 01/10/18 Unknown Rx levoFLOXacin [Levaquin TAB] 500 mg PO QDAY #7 tablet 01/10/18 Unknown Rx metroNIDAZOLE [Flagyl] 500 mg PO Q12HR #14 tab 01/10/18 Unknown Rx Acetaminophen/Codeine [Tylenol 1 tab PO Q6H PRN #12 tab 01/03/19 Unknown Rx /Codeine # 3 tab] Ondansetron [Zofran Odt] 4 mg PO Q8HR PRN #20 tab.rapdis 01/03/19 Unknown Rx Fluconazole [Diflucan TAB] 150 mg PO ONCE #1 tablet 08/16/19 Unknown Rx cephALEXin [Keflex] 500 mg PO BID 7 Days #14 cap 08/16/19 Unknown Rx Naproxen [Naprosyn] 500 mg PO BID #14 tablet 09/30/19 Unknown Rx Dicyclomine [Bentyl] 20 mg PO Q6H PRN #24 tablet 10/09/19 Unknown Rx Famotidine [Pepcid] 20 mg PO Q12H #60 tablet 10/09/19 Unknown Rx Ondansetron [Zofran Odt] 4 mg PO Q6HR PRN #18 tab.rapdis 10/09/19 Unknown Rx ED Physical Exam - General Limitations: No Limitations General appearance: alert, in no apparent distress - Head Head exam: Present: atraumatic, normocephalic, normal inspection - Eye Eye exam: Present: normal appearance, PERRL, EOMI Pupils: Present: normal accommodation - ENT ENT exam: Present: normal exam, normal orophraynx, mucous membranes moist, TM's normal bilaterally, normal external ear exam - Neck Neck exam: Present: normal inspection, full ROM. Absent: tenderness - Respiratory Respiratory exam: Present: normal lung sounds bilaterally. Absent: respiratory distress, wheezes, rhonchi, chest wall tenderness, accessory muscle use, decreased breath sounds - Cardiovascular Cardiovascular Exam: Present: regular rate, normal rhythm, normal heart sounds. Absent: systolic murmur, diastolic murmur, rubs, gallop - GI/Abdominal GI/Abdominal exam: Present: soft, normal bowel sounds. Absent: tenderness, guarding, hyperactive bowel sounds, hypoactive bowel sounds, organomegaly - Extremities Exam Extremities exam: Present: normal inspection, full ROM, normal capillary refill - Back Exam Back exam: Present: normal inspection, full ROM. Absent: tenderness, CVA tenderness (R), CVA tenderness (L), muscle spasm, paraspinal tenderness - Neurological Exam Neurological exam: Present: alert, oriented X3, CN II-XII intact, normal gait, reflexes normal - Psychiatric Psychiatric exam: Present: normal affect, normal mood - Skin Skin exam: Present: warm, dry, intact, normal color. Absent: rash ED Course Vital Signs 10/09/19 15:25 Temperature 98.2 F Pulse Rate 72 Respiratory 18 Rate Blood Pressure 133/83 O2 Sat by Pulse 100 Oximetry ED Medical Decision Making - Lab Data Result diagrams: 10/09/19 15:41 10/09/19 15:41 - Medical Decision Making This is a - Differential Diagnosis GERD; Gastritis; Gastroenteritis; Flu; UTI; Pancreatitis Critical care attestation.: If time is entered above; I have spent that time in minutes in the direct care of this critically ill patient, excluding procedure time. ED Disposition Clinical Impression: Abdominal pain Qualifiers: Abdominal location: left upper quadrant Qualified Code(s): R10.12 - Left upper quadrant pain Acute alcoholic gastritis Qualifiers: Gastritis bleeding: without bleeding Qualified Code(s): K29.20 - Alcoholic gastritis without bleeding GERD (gastroesophageal reflux disease) Qualifiers: Esophagitis presence: without esophagitis Qualified Code(s): K21.9 - Gastro- esophageal reflux disease without esophagitis Disposition: -01 TO HOME OR SELFCARE Is pt being admited?: No Does the pt Need Aspirin: No Condition: Stable Instructions: Abdominal Pain (ED), Gastritis (ED), Gastroesophageal Reflux Dis ease (ED) Additional Instructions: This is a 34-year-old female who presented to the ED with acute onset persistent left upper quadrant pain that radiates to the epigastric area with nausea for 24 hours after heavy alcohol consumption in the last 3 days and eating heavily s picy food. In the ED, patient is alert and oriented x3 and is not in any distress. Lab test results were reviewed and are all nonactionable. Patient was treated for acute gastritis and GERD and on reevaluation, patient felt better and was discharged home on medications including antacids and was advised to follow-up with her primary care physician in 7 to 10 days for reevaluation or return to the ED immediately if symptoms get worse. Prescriptions: Dicyclomine [Bentyl] 20 mg PO Q6H PRN #24 tablet PRN Reason: Pain , Severe (7-10) Famotidine [Pepcid] 20 mg PO Q12H #60 tablet Ondansetron [Zofran Odt] 4 mg PO Q6HR PRN #18 tab.rapdis PRN Reason: Nausea Referrals: MARY BEE JR, MD [Primary Care Provider] - 3-5 Days Time of Disposition: 19:41 Print Language: SAUDI ARABIAN
[2019-10-09 20:20] VITALS: BP 133/78
== END 2019-10-09 20:10 | disposition home or self-care (01) ==
LOC: ED 14:39
DX: K21.9 Gastro-esophageal reflux disease without esophagitis (principal); R10.12 Left upper quadrant pain; K29.20 Alcoholic gastritis without bleeding; F17.200 Nicotine dependence, unspecified, uncomplicated; Z79.899 Other long term (current) drug therapy; Z98.890 Other specified postprocedural states; Z98.51 Tubal ligation status
CPT/HCPCS: 36415; 80053; 81001; 84703; 85025; 99283

== ENCOUNTER 2019-12-09 13:50 | Emergency (ER) | payer OTHER ==
[2019-12-09 14:46] LABS: Bacteria,Urine 1+ /HPF (Negative); Bilirubin,Urine NEG (Negative); Blood,Urine NEG (Negative); Color,Urine Amber (Yellow); HCG Qualitative,Urine Negative (Negative); Mucus,Urine FEW /HPF; Protein,Urine <15 mg/dL mg/dL (Negative)
[2019-12-09] MEDS ORDERED: LIDOCAINE-MPF (1%) 10 MG/1 ML VIAL 5 ML INFILTRATI ONE (15:14)
[2019-12-09] MEDS ORDERED: AZITHROMYCIN 250 MG TAB PO ONE (15:14)
--- NOTE | 2019-12-09 15:44 | Emergency Department Report ---
ED Female HPI - General Chief complaint: Urogenital-Female Stated complaint: PELVIC PAIN (R)SIDE Time Seen by Provider: 12/09/19 14:33 Source: patient Mode of arrival: Ambulatory Limitations: No Limitations - History of Present Illness Initial comments: Patient is a 34-year-old female presents emergency room with complaints of pelvic pain that began a week ago. Patient states she has associated urinary frequency. She states that she has been using Azo without much relief. She denies any dysuria, vaginal discharge, vaginal irritation or itching, nausea, vomiting, diarrhea, fever. She states that she is sexually active and does not use protection during her last sexual encounter. She denies any allergies to medications. She states her last menstrual cycle was 11/21/2019. - Related Data Previous Rx's Medication Instructions Recorded Last Taken Type metroNIDAZOLE [Flagyl] 500 mg PO Q12HR #14 tab 05/15/17 Unknown Rx HYDROcodone/APAP 5-325 [[place] 1 - 2 each PO Q6HR PRN #10 tablet 01/10/18 Unknown Rx 5/325] Ibuprofen [Motrin 800 MG tab] 800 mg PO Q8HR PRN #20 tablet 01/10/18 Unknown Rx levoFLOXacin [Levaquin TAB] 500 mg PO QDAY #7 tablet 01/10/18 Unknown Rx metroNIDAZOLE [Flagyl] 500 mg PO Q12HR #14 tab 01/10/18 Unknown Rx Acetaminophen/Codeine [Tylenol 1 tab PO Q6H PRN #12 tab 01/03/19 Unknown Rx /Codeine # 3 tab] Ondansetron [Zofran Odt] 4 mg PO Q8HR PRN #20 tab.rapdis 01/03/19 Unknown Rx Fluconazole [Diflucan TAB] 150 mg PO ONCE #1 tablet 08/16/19 Unknown Rx cephALEXin [Keflex] 500 mg PO BID 7 Days #14 cap 08/16/19 Unknown Rx Naproxen [Naprosyn] 500 mg PO BID #14 tablet 09/30/19 Unknown Rx Dicyclomine [Bentyl] 20 mg PO Q6H PRN #24 tablet 10/09/19 Unknown Rx Famotidine [Pepcid] 20 mg PO Q12H #60 tablet 10/09/19 Unknown Rx Ondansetron [Zofran Odt] 4 mg PO Q6HR PRN #18 tab.rapdis 10/09/19 Unknown Rx metroNIDAZOLE [Flagyl] 500 mg PO BID 7 Days #14 tab 12/09/19 Unknown Rx Allergies Allergy/AdvReac Type Severity Reaction Status Date / Time No Known Allergies Allergy Verified 08/13/19 17:34 ED Review of Systems ROS: Stated complaint: PELVIC PAIN (R)SIDE Other details as noted in HPI Comment: All other systems reviewed and negative ED Past Medical Hx - Past Medical History Previous Medical History?: Yes Additional medical history: pid 2 m ago at [facility] [place] - Surgical History Past Surgical History?: Yes Additional Surgical History: tubal ligation, Right ovarian cyst removal - Social History Smoking Status: Current Every Day Smoker Substance Use Type: Alcohol - Medications Home Medications: Home Medications Medication Instructions Recorded Confirmed Last Taken Type metroNIDAZOLE [Flagyl] 500 mg PO Q12HR #14 tab 05/15/17 Unknown Rx HYDROcodone/APAP 5-325 [[place] 1 - 2 each PO Q6HR PRN #10 tablet 01/10/18 Unknown Rx 5/325] Ibuprofen [Motrin 800 MG tab] 800 mg PO Q8HR PRN #20 tablet 01/10/18 Unknown Rx levoFLOXacin [Levaquin TAB] 500 mg PO QDAY #7 tablet 01/10/18 Unknown Rx metroNIDAZOLE [Flagyl] 500 mg PO Q12HR #14 tab 01/10/18 Unknown Rx Acetaminophen/Codeine [Tylenol 1 tab PO Q6H PRN #12 tab 01/03/19 Unknown Rx /Codeine # 3 tab] Ondansetron [Zofran Odt] 4 mg PO Q8HR PRN #20 tab.rapdis 01/03/19 Unknown Rx Fluconazole [Diflucan TAB] 150 mg PO ONCE #1 tablet 08/16/19 Unknown Rx cephALEXin [Keflex] 500 mg PO BID 7 Days #14 cap 08/16/19 Unknown Rx Naproxen [Naprosyn] 500 mg PO BID #14 tablet 09/30/19 Unknown Rx Dicyclomine [Bentyl] 20 mg PO Q6H PRN #24 tablet 10/09/19 Unknown Rx Famotidine [Pepcid] 20 mg PO Q12H #60 tablet 10/09/19 Unknown Rx Ondansetron [Zofran Odt] 4 mg PO Q6HR PRN #18 tab.rapdis 10/09/19 Unknown Rx metroNIDAZOLE [Flagyl] 500 mg PO BID 7 Days #14 tab 12/09/19 Unknown Rx ED Physical Exam - General Limitations: No Limitations General appearance: alert, in no apparent distress - Head Head exam: Present: atraumatic, normocephalic - Eye Eye exam: Present: normal appearance - ENT ENT exam: Present: mucous membranes moist - Respiratory Respiratory exam: Present: normal lung sounds bilaterally. Absent: respiratory distress, wheezes, rales, rhonchi, stridor, chest wall tenderness, accessory muscle use, decreased breath sounds, prolonged expiratory - Cardiovascular Cardiovascular Exam: Present: regular rate, normal rhythm, normal heart sounds. Absent: systolic murmur, diastolic murmur, rubs, gallop - GI/Abdominal GI/Abdominal exam: Present: soft, normal bowel sounds. Absent: distended, tenderness, guarding, rebound, rigid - External exam: Present: other (financial services counselor: GERMAINE boo present during pelvic examination, there is a body piercing present in the clitorial emery). Absent: erythema, swelling, lesions, lacerations, ecchymosis, bleeding Speculum exam: Present: vaginal discharge (white), cervical discharge (white). Absent: erythema, vaginal bleeding, foreign body, tissue, laceration Bi-manual exam: Present: normal bi-manual exam. Absent: cervical motion tendernes, adnexal tenderness, adnexal mass - Neurological Exam Neurological exam: Present: alert, oriented X3 - Psychiatric Psychiatric exam: Present: normal affect, normal mood - Skin Skin exam: Present: warm, dry, intact ED Course Vital Signs 12/09/19 14:02 Temperature 97.8 F Pulse Rate 84 Respiratory 20 Rate Blood Pressure 142/86 O2 Sat by Pulse 96 Oximetry ED Medical Decision Making - Medical Decision Making Patient is a 34-year-old female presents emergency room with complaints of pelvic pain that began a week ago. Patient states she has associated urinary frequency. She states that she has been using Azo without much relief. She denies any dysuria, vaginal discharge, vaginal irritation or itching, nausea, vomiting, diarrhea, fever. She states that she is sexually active and does not use protection during her last sexual encounter. She denies any allergies to medications. She states her last menstrual cycle was 11/21/2019. Vitals are stable. on exam: financial services counselor: GERMAINE boo present during pelvic examination, there is a body piercing present in the clitoral emery, there is white vaginal and cervical discharge, no CMT, no adnexal masses or tenderness bilaterally. UA without evidence of UTI. Urine is negative. Wet prep shows bacterial vaginosis. G/C swab sent. Offered patient prophylactic treatment for G/C and she states that she does want the treatment, patient given azithromycin and ceftriaxone. Patient given prescription for Flagyl. Advised patient Please take medication as prescribed. Do not drink alcohol while taking medication. 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 Please follow- up with a APPLICATION SUPPORT DEVELOPER for your pelvic pain. Please have a full STD panel performed by APPLICATION SUPPORT DEVELOPER or the health department. Please have any partner tested and treated as well. Return to the emergency room for any new or worsening symptoms. Critical care attestation.: If time is entered above; I have spent that time in minutes in the direct care of this critically ill patient, excluding procedure time. ED Disposition Clinical Impression: Pelvic pain, Bacterial vaginosis Disposition: TO HOME OR SELFCARE Is pt being admited?: No Does the pt Need Aspirin: No Condition: Stable Instructions: Bacterial Vaginosis (ED), Sexually Transmitted Diseases (ED), Safe Sex (ED) Additional Instructions: Please take medication as prescribed. Do not drink alcohol while taking medication. 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 Please follow-up with a APPLICATION SUPPORT DEVELOPER for your pelvic pain. Please have a full STD panel performed by APPLICATION SUPPORT DEVELOPER or the health department. Please have any partner tested and treated as well. Return to the emergency room for any new or worsening symptoms. Prescriptions: metroNIDAZOLE [Flagyl] 500 mg PO BID 7 Days #14 tab Referrals: MARY BEE JR, MD [Primary Care Provider] - 2-3 Days BERENICE TOLEDO MD [Staff Physician] - 2-3 Days [facility] [Outside] - 2-3 Days Forms: STI Treatment and Prevention Time of Disposition: 15:44 Print Language: COMORAN
[2019-12-11 12:41] VITALS: BP 142/86
== END 2019-12-09 16:00 | disposition home or self-care (01) ==
LOC: ED 13:50
DX: N76.0 Acute vaginitis (principal); R10.2 Pelvic and perineal pain; F17.200 Nicotine dependence, unspecified, uncomplicated; Z79.899 Other long term (current) drug therapy; Z98.890 Other specified postprocedural states; Z98.51 Tubal ligation status
CPT/HCPCS: 81001; 81025; 87210; 87591; 96372; 99284; J0696